=== PATIENT | male | born 2000 | race Caucasian/White ===

== ENCOUNTER 2023-06-07 21:44 | Outpatient (REF) | payer MEDICAID, SELFPAY ==
[2023-06-07 21:48] LABS: Abs Immature Grans 0.02 10^3/uL (0.0-0.06); Absolute Basophil Count 0.05 10^3/uL (0.0-0.2); Absolute Eosinophil Count 0.06 10^3/uL (0.0-0.7); Absolute Monocyte Count 0.52 10^3/uL (0.1-0.8); Absolute Neutrophil Count 3.73 10^3/uL (1.2-6.7); Basophils % 0.8; Eosinophils % 0.9; HCT 54.3 % (40.0-50.0); Immature Grans % 0.3; Lymphocytes % 32.4; MCH 28.6 pg (27.0-33.0); MCHC 33.1 % (32.0-36.0); MCV 86 fL (80-95); MPV 11.1 fL (8.0-11.0); Neutrophils % 57.6; Platelet Count 217 10^3/uL (130-400); RDW 14.2 % (11.8-14.1); RDW-SD 45.1 fL; WBC 6.48 10^3/uL (4.4-10.8)
[2023-06-07 21:56] LABS: ALT 22 U/L (16-63); AST 17 U/L (15-37); Albumin 4.5 g/dL (3.4-5.0); Alkaline Phosphatase 92 U/L (46-116); BUN 16 mg/dL (7-18); Bilirubin, Total 0.5 mg/dL (0.2-1.0); CREATININE 1.1 mg/dL (0.70-1.30); Calcium 9.9 mg/dL (8.5-10.1); Chloride 102 mmol/L (98-107); Estimated GFR 96.14 (mL/min/1.73m2); Glucose 94 mg/dL (74-106); Lipase 39 U/L (16-77); Potassium 4.5 mmol/L (3.5-5.1); Sodium 138 mmol/L (136-145); Total Protein 8.1 g/dL (6.4-8.2)
[2023-06-07 22:24] LABS: RBC 6.29 10^6/uL (4.36-5.78)
== END 2023-06-07 21:45 | disposition home or self-care (01) ==
LOC: LBN 21:44
PROVIDERS: Visit Provider Physician Assistant Medical
DX: R10.11 Right upper quadrant pain (principal)
CPT/HCPCS: 80053; 83690; 85025

== ENCOUNTER 2023-06-17 07:41 | Emergency (ER) | payer MEDICAID, SELFPAY ==
[2023-06-17 07:43] VITALS: BP 130/95; PULSE 78; RESP 18; TEMP 36.8; O2SAT 991
--- NOTE | 2023-06-17 08:00 | DI.RAD_ITS ---
Exam(s) XR FOREARM LT XR HAND LT COMPLETE EXAM: XR HAND LT COMPLETE and XR forearm LT CLINICAL HISTORY: Injury. TECHNIQUE: 2D digital imaging was performed of the left forearm and hand. Six views were obtained. AP, lateral and oblique views were obtained. COMPARISON: No previous for comparison. FINDINGS: BONES: There is an acute oblique fracture in the proximal diaphysis of the 5th metacarpal bone withou t significant displacement. There is a tiny 2 3 mm chavez of calcium at the lateral aspect of the bas e of the middle phalanx of the 4th finger which may represent a small avulsed fracture. No other fra ctures identified. No bony destructive lesion is seen. The left forearm is unremarkable. JOINTS: No dislocation present. SOFT TISSUE: There is soft tissue swelling adjacent to the 5th metacarpal fracture and in the 4th fin von. IMPRESSION: 1. Nondisplaced acute 5th metacarpal fracture. 2. Tiny chavez of bone adjacent to the lateral aspect of the base of the middle phalanx of the 4th fin von suspicious for small fracture. DATA REPOSITORY: RADIATION DOSE DELIVERED:
--- NOTE | 2023-06-17 08:00 | DI.RAD_ITS ---
Exam(s) XR SHOULDER LT COMPLETE 2+V EXAM: XR SHOULDER LT COMPLETE 2+V CLINICAL HISTORY: Injury. TECHNIQUE: 2D digital imaging was performed of the left shoulder. Four images were obtained. AP, G rashey, and Y views were obtained. COMPARISON: No exams were available for comparison FINDINGS: BONES: No acute fracture is present. No bony destructive lesion is seen. JOINTS: No dislocation present. SOFT TISSUE: Normal. IMPRESSION: Unremarkable radiographs of the left shoulder. DATA REPOSITORY: RADIATION DOSE DELIVERED:
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
[2023-06-17] MEDS: Ibuprofen 600 MG TAB PO (08:21)
--- NOTE | 2023-06-17 09:03 | DI.VRAD_ITS ---
PROCEDURE INFORMATION: Exam: XR Left Forearm Exam date and time: 06/17/2023 8:40 AM Age: 23 years old Clinical indication: Other: Injury TECHNIQUE: Imaging protocol: Radiologic exam of the left forearm. Views: 2 views. COMPARISON: CR XR HAND LT COMPLETE 06/17/2023 8:37 AM FINDINGS: Bones/joints: Acute oblique fracture of visualized proximal 5th metacarpal, without appreciable displacement. Adjacent soft tissue swelling. No additional fracture or malalignment. Joint spaces are maintained. Soft tissues: See Bones/joints finding. IMPRESSION: Acute 5th metacarpal fracture. No additional fracture or malalignment. Dictated and Authenticated by: Gordy Stuart MD. Ordering:HARVINDER Castro MD
--- NOTE | 2023-06-17 09:09 | DI.VRAD_ITS ---
PROCEDURE INFORMATION: Exam: XR Left Hand Exam date and time: 06/17/2023 8:37 AM Age: 23 years old Clinical indication: Other: Injury TECHNIQUE: Imaging protocol: Radiologic exam of the left hand. Views: 3 or more views. COMPARISON: No relevant prior studies available. FINDINGS: Bones/joints: Acute oblique fracture of proximal/mid 5th metacarpal, without appreciable displacement. Adjacent soft tissue swelling. Tiny chavez of bone lateral and likely volar to base of 4th middle phalanx with surrounding soft tissue swelling concerning for avulsion fracture. No dislocation. Joint spaces are maintained. Soft tissues: See Bones/joints finding. IMPRESSION: Acute extra-articular fracture of 5th metacarpal. Tiny chavez of bone lateral and likely volar to base of 4th middle phalanx with surrounding soft tissue swelling concerning for avulsion fracture. Dictated and Authenticated by: Gordy Stuart MD. Ordering:HARVINDER Castro MD
--- NOTE | 2023-06-17 09:16 | DI.VRAD_ITS ---
PROCEDURE INFORMATION: Exam: XR Left Shoulder Exam date and time: 06/17/2023 8:34 AM Age: 23 years old Clinical indication: Other: Injury TECHNIQUE: Imaging protocol: Radiologic exam of the left shoulder. Views: 2 or more views. COMPARISON: No relevant prior studies available. FINDINGS: Bones/joints: No acute fracture or dislocation. Glenohumeral and acromioclavicular joints are maintained. Subcortical possibly degenerative cystic changes within posterior humeral head. Soft tissues: No acute abnormality. IMPRESSION: No radiographic evidence of acute osseous injury. Dictated and Authenticated by: Gordy Stuart MD. Ordering:HARVINDER Castro MD
[2023-06-17 09:27] VITALS: BP 130/85; PULSE 78; RESP 18; TEMP 36.8; O2SAT 99
== END 2023-06-17 09:26 | disposition home or self-care (01) ==
PROVIDERS: Emergency Provider Registered Nurse Emergency
DX: M25.512 Pain in left shoulder (principal); F17.200 Nicotine dependence, unspecified, uncomplicated; S62.347A Nondisplaced fracture of base of fifth metacarpal bone, left hand, initial encounter for closed fracture; W22.8XXA Striking against or struck by other objects, initial encounter
CPT/HCPCS: 29125; 99283; 73030; 73090; 73130

== ENCOUNTER 2023-06-25 09:49 | Outpatient (CLI) | payer MEDICAID, SELFPAY ==
--- NOTE | 2023-06-25 09:15 | DI.RAD_ITS ---
Exam(s) XR HAND LT COMPLETE EXAM: XR HAND LT COMPLETE CLINICAL HISTORY: F/U 5TH METACARPAL FX. TECHNIQUE: 2D digital imaging was performed. COMPARISON: CR,XR XR HAND LT COMPLETE from 06/17/2023 FINDINGS: 3 views The oblique fracture in the 5th metacarpal appears unchanged from 06/17/2023. No further displacemen t. No obvious callus formation evident. No additional fractures. IMPRESSION: Unchanged appearance of the 5th meta carpal fracture site when compared to 06/17/2023 DATA REPOSITORY: RADIATION DOSE DELIVERED:
== END 2023-06-25 09:50 | disposition home or self-care (01) ==
LOC: DIORS 09:50
PROVIDERS: PCP Physician Assistant; Visit Provider Student in an Organized Health Care Education/Training Program
DX: S62.347D Nondisplaced fracture of base of fifth metacarpal bone, left hand, subsequent encounter for fracture with routine healing (principal); X58.XXXD Exposure to other specified factors, subsequent encounter
CPT/HCPCS: 73130

== ENCOUNTER 2023-07-23 11:47 | Outpatient (CLI) | payer MEDICAID, SELFPAY ==
--- NOTE | 2023-07-23 09:00 | DI.RAD_ITS ---
Exam(s) XR HAND LT COMPLETE EXAM: XR HAND LT COMPLETE CLINICAL HISTORY: F/U L METACARPAL FX. TECHNIQUE: 2D digital imaging was performed. Three views. COMPARISON: CR,XR XR HAND LT COMPLETE from 06/17/2023 CR XR HAND LT COMPLETE from 06/25/2023 FINDINGS: Change in the alignment of the fracture of the 5th metacarpal. Mild surrounding callus formation. N o new abnormalities. DATA REPOSITORY: RADIATION DOSE DELIVERED:
== END 2023-07-23 11:48 | disposition home or self-care (01) ==
LOC: DIORS 11:48
PROVIDERS: PCP Physician Assistant; Visit Provider Student in an Organized Health Care Education/Training Program
DX: S62.347D Nondisplaced fracture of base of fifth metacarpal bone, left hand, subsequent encounter for fracture with routine healing (principal); X58.XXXD Exposure to other specified factors, subsequent encounter
CPT/HCPCS: 73130